=== PATIENT | male | born 1960 | race Two or more races ===

== ENCOUNTER 2018-04-11 11:05 | Emergency (ER) | payer OTHER ==
[~2018-04-11] VITALS: Ht 185.4 cm; Wt 99.8 kg
[2018-04-11] MEDS ORDERED: ASPIR-LOW81 MG (12:33)
== END 2018-04-11 21:58 | disposition home or self-care (01) ==
LOC: ER 11:05 → CPU-OBS 12:54 → ER 12:54
DX: S00.83XA Contusion of other part of head, initial encounter (principal); S30.0XXA Contusion of lower back and pelvis, initial encounter; W18.39XA Other fall on same level, initial encounter; Y93.89 Activity, other specified; Y92.69 Other specified industrial and construction area as the place of occurrence of the external cause; Y99.8 Other external cause status; R55 Syncope and collapse
CPT/HCPCS: G0378; G0379; 70450; 93306; 72131